=== PATIENT | female | born 1975 | race Two or more races ===

== ENCOUNTER 2024-07-18 13:05 | Emergency (ER) | payer OTHER ==
[~2024-07-18] VITALS: Ht 162.6 cm; Wt 65.8 kg
[2024-07-18 13:12] VITALS: BP 146/85; O2SAT 99
[2024-07-18] MEDS ORDERED: FAMOtidine 10 MG/ML (4ML VIAL) IV STA (13:40)
[2024-07-18] MEDS ORDERED: RINGERS SOLUTION,LACTATED 1,000 ML IV STA (13:40)
[2024-07-18] MEDS ORDERED: METOCLOPRAMIDE HCL 5 MG/ML VIAL IV STA (13:41)
[2024-07-18] MEDS ORDERED: ONDANSETRON HCL 2 MG/ML VIAL IV STA (13:43)
[2024-07-18 14:29] LABS: HEMATOCRIT 35.5 % (36.0-45.00); MEAN CELL VOLUME 92.9 fL (80.00-100.00); MEAN CORPUSCULAR HEMOGLOBIN 31.5 pg (27.00-32.0); MEAN CORPUSCULAR HGB CONC 33.9 g/dl (32.0-36.0); PLATELET COUNT 252 K/uL (150-450); RED BLOOD COUNT 3.83 M/uL (4.00-6.00); RED CELL DISTRIBUTION WIDTH 12.8 % (11.5-14.5)
[2024-07-18 14:52] LABS: ALBUMIN 2.9 gm/dL (3.4-5.0); ALKALINE PHOSPHATASE 70 U/L (50-136); ALT/SGPT 14 U/L (12-78); AMYLASE 51 U/L (25-115); ANION GAP 8 (10.0-20.0); AST/SGOT 19 U/L (15-37); BILIRUBIN TOTAL 0.29 mg/dL (0.3-1.2); BILIRUBIN,CONJUGATED < 0.10 mg/dL (0.0-0.2); BILIRUBIN,UNCONJUGATED 0.19 mg/dL (0.0-0.6); BLOOD UREA NITROGEN 3 mg/dL (7-18); BUN CREA RATIO 5 (7.0-25.0); CALCIUM 8.5 mg/dL (8.5-10.1); CARBON DIOXIDE 27 mEq/L (21-32); CHLORIDE 111 mmol/L (98-107); CREATININE SERUM 0.57 mg/dL (0.55-1.02); GFR 112.73; GLUCOSE FASTING 78 mg/dL (65-100); LIPASE 40 U/L (13-75); OSMOLALITY SERUM 279 MOSM/KG (275-295); POTASSIUM 3.82 mEq/L (3.5-5.1); SODIUM 142 mmol/L (136-145); TOTAL PROTEIN 6.2 gm/dL (6.4-8.2)
[2024-07-18] MEDS ORDERED: DICY20TA PO (16:46)
== END 2024-07-18 17:01 | disposition home or self-care (01) ==
LOC: ER 13:05
PROVIDERS: General Practice
DX: R10.9 Unspecified abdominal pain (principal); M19.90 Unspecified osteoarthritis, unspecified site; J45.909 Unspecified asthma, uncomplicated; Z88.0 Allergy status to penicillin; Z88.6 Allergy status to analgesic agent